=== PATIENT | male | born 1965 | race Two or more races ===

== ENCOUNTER 2016-10-02 07:12 | Day surgery (SDC) | payer OTHER ==
[~2016-10-02 07:12] MED LIST: FENTANYL 250 MCG/5 ML AMP IV PRN; LACTATED RINGERS 1,000 ML IV SCH; MIDAZOLAM HCL 5 MG/5 ML VIAL IV PRN
[2016-10-02] MEDS ORDERED: IV START KIT ONE (07:30)
[2016-10-02] MEDS ORDERED: LIDOCAINE Viscous 2% 15 ML UDCUP PO PRN (07:39)
[2016-10-02] MEDS ORDERED: MIDAZOLAM HCL 5 MG/5 ML VIAL ONE (08:08)
[2016-10-02] MEDS ORDERED: FENTANYL 5 ML ONE (08:08)
[2016-10-02] MEDS ORDERED: LIDOCAINE Viscous 2% 15 ML UDCUP ONE (08:22)
== END 2016-10-02 09:28 | disposition home or self-care (01) ==
LOC: SDC 07:12
PROVIDERS: ATTEND Internal Medicine Gastroenterology
PROC: 0DJD8ZZ Inspection of Lower Intestinal Tract, Via Natural or Artificial Opening Endoscopic (ICD-10-PCS; principal; 2016-10-02)
DX: Z12.11 Encounter for screening for malignant neoplasm of colon (principal)